=== PATIENT | female | born 1960 | race American Indian/Alaskan Native ===

== ENCOUNTER 2020-05-12 09:56 | Outpatient (CLI) | payer OTHER ==
--- NOTE | 2020-05-12 11:24 | XRay Report ---
XR spine lumbosacral 2-3V HISTORY: BACK PAIN COMPARISON: None. TECHNIQUE: 3 view(s) of the lumbar spine obtained. FINDINGS: Vertebrae: Normal alignment. Vertebral body heights are preserved. Spondylosis:Disc space heights are preserved. Moderate L4-5 and L5-S1 facet arthropathy. IMPRESSION: 1. Moderate L4-5 facet arthropathy. Otherwise, no abnormality of the lumbar spine. Signer Name: Wilberto Castro MD Signed: 05/12/2020 11:19 AM Workstation Name: [employer]
== END 2020-05-12 09:57 | disposition home or self-care (01) ==
LOC: XRAY 09:56
PROVIDERS: ATTEND Internal Medicine
DX: M47.816 Spondylosis without myelopathy or radiculopathy, lumbar region (principal)
CPT/HCPCS: 72100

== ENCOUNTER 2020-09-19 19:18 | Emergency (ER) | payer OTHER ==
[2020-09-19] MEDS ORDERED: BALANCED SALT IRRIG (BSS) OPHTH SOLN 15 ML OU ONE (20:45)
[2020-09-19] MEDS ORDERED: FLUORESCEIN 1 MG STRIP OP ONE (20:45)
[2020-09-19] MEDS ORDERED: TETRACAINE 0.5% OPHTH SOLN 4ML OU ONE (20:45)
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
[2020-09-19] MEDS ORDERED: SODIUM CHLORIDE 0.9% 1000 ML 1,000 ML ONE (21:09)
[2020-09-19] MEDS ORDERED: SODIUM CHLORIDE 0.9% 1000 ML 1,000 ML IV ONE (21:18)
[2020-09-19] MEDS ORDERED: LACTATED RINGERS 1,000 ML IV ONE ×2 (21:40→21:42)
[2020-09-19 23:28] VITALS: BP 137/89
== END 2020-09-19 23:52 | disposition home or self-care (01) ==
LOC: ED 19:18
DX: T54.2X1A Toxic effect of corrosive acids and acid-like substances, accidental (unintentional), initial encounter (principal); T26.61XA Corrosion of cornea and conjunctival sac, right eye, initial encounter; Z90.89 Acquired absence of other organs; Z79.899 Other long term (current) drug therapy; T79.9XXA Unspecified early complication of trauma, initial encounter; Y93.89 Activity, other specified; Y92.89 Other specified places as the place of occurrence of the external cause; Y99.8 Other external cause status
CPT/HCPCS: 96360; 99284; J7030; 96361; J7120